=== PATIENT | female | born 1980 | race Caucasian/White ===

== ENCOUNTER 2016-09-27 16:36 | Emergency (ER) | payer OTHER ==
[~2016-09-27] VITALS: Ht 165.1 cm; Wt 54.4 kg
[~2016-09-27 16:36] MED LIST: AUGMENTIN875 MG PO; BACTRIM,SEPT1 TABLET PO; BUPRENORPHIN-N1 EACH SL; BUPRENORPHINE HC2 MG SL; BUPRENORPHINE HC8 MG SL; CHEWABLE-VITE1 EACH PO; GILDESS1 EAC1 PO; IBUPROFEN800 MG PO; KEFLEX500 MG PO; NAPROSYN500 MG PO; NOHOMEMEDS; NORCO 5/3251 TABLET PO; ON NO MEDS; PERCOCET 5/31 TABLET PO; ZOFRAN8 MG PO
[2016-09-27 18:46] LABS: ADD MIUA? YES; BILIRUBIN NEGATIVE; BLOOD LARGE; COLOR AMBER ((YELLOW)); GLUCOSE (STRIP) NEGATIVE; KETONES 5; LEUKOCYTES LARGE; NITRITE NEGATIVE; PROTEIN (STRIP) >=500; SPECIFIC GRAVITY 1.022 (1.000-1.030)
[2016-09-27 18:48] LABS: INTERNAL CONTROL VALID? YES
[2016-09-27 19:08] LABS: EPITHELIAL CELLS 1+ /HPF; MUCUS NONE SEEN /LPF; RED BLOOD CELLS TNTC /HPF (0-5); WHITE BLOOD CELLS TNTC /HPF (0-5)
[2016-09-27 19:09] LABS: BACTERIA 2+ /HPF; UCUL ADDED? YES
[2016-09-27] MEDS ORDERED: MOTRIN800 MG PO (19:11)
[2016-09-27] MEDS ORDERED: KEFLEX500 MG PO (19:11)
[2016-09-27] MEDS ORDERED: PYRIDIUM200 MG PO (19:11)
[2016-09-27 19:24] VITALS: BP 116/76
== END 2016-09-27 19:25 | disposition home or self-care (01) ==
LOC: EME 16:36
DX: N39.0 Urinary tract infection, site not specified (principal); Z87.891 Personal history of nicotine dependence; F11.21 Opioid dependence, in remission
CPT/HCPCS: 81003; 84703; 87077; 87086; 87186; 99281; 99283

== ENCOUNTER 2016-11-03 11:19 | Emergency (ER) | payer OTHER ==
[~2016-11-03] VITALS: Ht 167.6 cm; Wt 57.6 kg
[~2016-11-03 11:19] MED LIST changes: +MOTRIN800 MG PO; +PYRIDIUM200 MG PO
[2016-11-03 11:45] LABS: ADD MIUA? YES; BILIRUBIN NEGATIVE; BLOOD NEGATIVE; COLOR YELLOW ((YELLOW)); GLUCOSE (STRIP) NEGATIVE; KETONES NEGATIVE; LEUKOCYTES LARGE; NITRITE NEGATIVE; PROTEIN (STRIP) NEGATIVE; SPECIFIC GRAVITY 1.009 (1.000-1.030); UROBILINOGEN 0.2 MG/DL (0.2-1.0)
[2016-11-03 11:48] LABS: INTERNAL CONTROL VALID? YES
[2016-11-03 11:54] LABS: BACTERIA RARE /HPF; BUDDING YEAST 3+; EPITHELIAL CELLS 1+ /HPF; MUCUS TRACE /LPF; UCUL ADDED? YES; WHITE BLOOD CELLS TNTC /HPF (0-5)
[2016-11-03] MEDS ORDERED: CIPRO500 MG PO (12:22)
[2016-11-03 12:35] VITALS: BP 137/80
== END 2016-11-03 12:36 | disposition home or self-care (01) ==
LOC: EME 11:19
PROVIDERS: Physician Assistant
DX: N39.0 Urinary tract infection, site not specified (principal); Z87.440 Personal history of urinary (tract) infections; Z88.6 Allergy status to analgesic agent; Z88.8 Allergy status to other drugs, medicaments and biological substances; F17.200 Nicotine dependence, unspecified, uncomplicated
CPT/HCPCS: 81003; 84703; 87077; 87086; 99281; 99282

== ENCOUNTER 2016-11-09 10:53 | Emergency (ER) | payer SELFPAY ==
[~2016-11-09] VITALS: Ht 167.6 cm; Wt 57.2 kg
[~2016-11-09 10:53] MED LIST changes: +CIPRO500 MG PO
[2016-11-09] MEDS ORDERED: NORCO 5/3251 TABLET PO (11:23)
[2016-11-09] MEDS ORDERED: FLEXERIL5 MG PO (11:23)
[2016-11-09] MEDS ORDERED: MOTRIN600 MG PO (11:23)
[2016-11-09] MEDS ORDERED: PREDNISONE50 MG PO (11:23)
[2016-11-09 11:40] VITALS: BP 111/71
== END 2016-11-09 11:41 | disposition home or self-care (01) ==
LOC: EME 10:53
DX: M54.16 Radiculopathy, lumbar region (principal); M79.604 Pain in right leg
CPT/HCPCS: 99281; 99283; J7512

== ENCOUNTER 2017-06-28 12:16 | Emergency (ER) | payer OTHER ==
[~2017-06-28] VITALS: Ht 167.6 cm; Wt 64.0 kg
[~2017-06-28 12:16] MED LIST changes: +FLEXERIL5 MG PO; +MOTRIN600 MG PO; +PREDNISONE50 MG PO
[2017-06-28 12:30] VITALS: BP 99/57
[2017-06-28] MEDS ORDERED: NORCO 5/3251 TABLET PO (13:53)
== END 2017-06-28 14:19 | disposition home or self-care (01) ==
LOC: EME 12:16
DX: S92.424A Nondisplaced fracture of distal phalanx of right great toe, initial encounter for closed fracture (principal); S92.514A Nondisplaced fracture of proximal phalanx of right lesser toe(s), initial encounter for closed fracture; W22.09XA Striking against other stationary object, initial encounter; Y93.01 Activity, walking, marching and hiking; Z88.5 Allergy status to narcotic agent
CPT/HCPCS: 73630; 99281; 99283